=== PATIENT | male | born 1960 | race Caucasian/White ===

== ENCOUNTER → 2017-09-05 | Outpatient (CLI) | payer OTHER | END | disposition home or self-care (01) | LOC: KCIC 08:44 | DX: R91.8 Other nonspecific abnormal finding of lung field (principal) | CPT/HCPCS: 71046 ==

== ENCOUNTER → 2017-11-21 | Day surgery (SDC) | payer MEDICARE, OTHER ==
[~2017-11-21] MED LIST: IV RINGERS,LACTATED 1000ML 1,000 ML IV; LIDOCAINE 2% PF Vial for OR 5 ML VIAL.; PROPOFOL 20 ML IV
== END ==
LOC: SURG 07:41
DX: Z12.11 Encounter for screening for malignant neoplasm of colon (principal); K64.0 First degree hemorrhoids; K57.30 Diverticulosis of large intestine without perforation or abscess without bleeding; J45.909 Unspecified asthma, uncomplicated; E78.5 Hyperlipidemia, unspecified; E03.9 Hypothyroidism, unspecified; Z86.73 Personal history of transient ischemic attack (TIA), and cerebral infarction without residual deficits; Z82.49 Family history of ischemic heart disease and other diseases of the circulatory system; Z83.3 Family history of diabetes mellitus; Z79.899 Other long term (current) drug therapy
CPT/HCPCS: 45378; G0121; J2704

== ENCOUNTER 2019-05-03 15:55 | Emergency (ER) | payer MEDICARE, OTHER ==
[~2019-05-03] VITALS: Ht 182.9 cm; Wt 54.4 kg
[~2019-05-03 15:55] MED LIST changes: +ATOR20TA58 PO; +BENZ-8 PO; +BUPR150T8 PO; +CETI10TA16 PO; +FLUT1DIS3 IH; -IV RINGERS,LACTATED 1000ML 1,000 ML IV; +LEVO50TA5 PO; -LIDOCAINE 2% PF Vial for OR 5 ML VIAL.; -PROPOFOL 20 ML IV; +RANI150C PO; +RISP1TAB3 PO; +TRAZ-86 PO; +ZOLP10TA4 PO
[2019-05-03] MEDS ORDERED: LIDOCAINE 1% PF 2 ML VIAL. INJ ONE (16:15)
[2019-05-03] MEDS ORDERED: NEOMY/BACITR/POLYMYXIN OINT PACKET. TP ONE (16:15)
--- NOTE | 2019-05-03 16:48 | RAD ---
Exam: CT head and orbits INDICATION: Fall TECHNIQUE: Sequential axial images through the head and orbits were obtained without the administration of IV contrast. Comparisons: None FINDINGS: Head: No focal parenchymal lesion or hemorrhage is identified. There is no midline shift or sulcal effacement. No acute vascular territory infarction is identified. Mosher-white distinction is preserved. The ventricular system is within normal limits without compression hydrocephalus. The basal cisterns are well maintained. Orbits: Soft tissue extracranial contusion overlying the inferior orbital ridge on the right. Globes and intraorbital contents are normal. No acute fracture. Visualized portions of the paranasal sinuses are well-pneumatized. IMPRESSION: 1. Extracranial soft tissue contusion overlying the inferior orbital ridge on the right without underlying injury to the globe or intraorbital contents. 2. No acute intracranial abnormality. Exposure: One or more of the following in the visualized dose reduction techniques were utilized for this examination: 1. Automated exposure control 2. Adjustment of the MA and/or KV according to patient size Use of iterative of reconstructive technique Electronically signed by: Ashlee Og MD (05/03/2019 4:45 PM) [facility]
--- NOTE | 2019-05-03 17:01 | PHYS DOC ---
Past Medical History Past Medical History: Anxiety, Depression Past Surgical History: Other Additional Past Surgical Histo: HERINA Alcohol Use: None Drug Use: None Adult General Chief Complaint Chief Complaint: LACERATION/AVULSION [facility] HPI Patient is a 58 year old male who presents to the ER via EMS with complains of lacerations to his right eye after a witnessed fall outside the front of his home. Pt denies any LOC, nausea, vomiting, vision changes, head pain, neck pain, back pain, numbness or tingling. He states that he tripped over his own feet and that is the reason he fell. He also complains of abrasions to his right shoulder and bilateral palms. He states his last tetanus shot was less than 5 years ago. Pt denies any pain at this time. Review of Systems Review of Systems Constitutional: Denies fever or chills [] Eyes: Denies change in visual acuity, redness, or eye pain [] HENT: Denies nasal congestion or sore throat [] Respiratory: Denies cough or shortness of breath [] Cardiovascular: No additional information not addressed in HPI [] GI: Denies abdominal pain, nausea, or vomiting, Musculoskeletal: Denies back pain or joint pain [] Integument: Denies rash; see HPI Neurologic: Denies headache, focal weakness or sensory changes [] Complete systems were reviewed and found to be within normal limits, except as documented in this note. Current Medications Current Medications Current Medications Medications (Trade) Dose Ordered Sig/Jarrett Start Time Stop Time Status Last Admin Dose Admin Lidocaine HCl (Xylocaine-Mpf 1% 2ml Vial) 4 ml 1X ONCE 05/03/19 16:15 05/03/19 16:16 DC Neomycin/ Polymyxin/ Bacitracin (Triple Antibiotic Ointment) 1 pkt 1X ONCE 05/03/19 16:15 05/03/19 16:16 DC Allergies Allergies Allergies Coded Allergies Type Severity Reaction Last Updated Verified No Known Drug Allergies 11/21/17 No Physical Exam Physical Exam Constitutional: Well developed, well nourished, no acute distress, non-toxic appearance. [] HENT: Normocephalic, atraumatic, bilateral external ears normal, oropharynx moist, no oral exudates, nose normal. [] Eyes: PERRLA, EOMI, conjunctiva normal, no discharge. [] Neck: Normal range of motion, no tenderness, supple, no stridor. [] Cardiovascular:Heart rate regular rhythm Lungs & Thorax: Bilateral breath sounds clear to auscultation [] Skin: Warm, dry, no erythema, no rash; 3 superficial lacerations noted to left upper eye lid one just superior to the lateral eyebrow, one to the lateral upper eyelid and one just below the eyebrow, each measuring 1 cm or less with no active bleeding or visible FB; abrasions noted to palmar surface of proximal hand bilaterally without active bleeding; abrasion noted to lateral surface of right hand without active bleeding; and abrasion noted to the right shoulder without active bleeding. [] Back: No tenderness Extremities: No tenderness, no cyanosis, no clubbing, ROM intact, no edema. [] Neurologic: Alert and oriented X 3, no focal deficits noted. [] Psychologic: Affect normal, judgement normal, mood normal. [] Current Patient Data Vital Signs Vital Signs Date Time Temp Pulse Resp B/P (MAP) Pulse Ox O2 Delivery O2 Flow Rate FiO2 05/03/19 16:32 98.6 82 21 136/88 (104) 94 Room Air 98.6 EKG EKG [] Radiology/Procedures Radiology/Procedures PROCEDURE: CT HEAD WO CONTRAST Exam: CT head and orbits INDICATION: Fall TECHNIQUE: Sequential axial images through the head and orbits were obtained without the administration of IV contrast. Comparisons: None FINDINGS: Head: No focal parenchymal lesion or hemorrhage is identified. There is no midline shift or sulcal effacement. No acute vascular territory infarction is identified. Mosher-white distinction is preserved. The ventricular system is within normal limits without compression hydrocephalus. The basal cisterns are well maintained. Orbits: Soft tissue extracranial contusion overlying the inferior orbital ridge on the right. Globes and intraorbital contents are normal. No acute fracture. Visualized portions of the paranasal sinuses are well-pneumatized. IMPRESSION: 1. Extracranial soft tissue contusion overlying the inferior orbital ridge on the right without underlying injury to the globe or intraorbital contents. 2. No acute intracranial abnormality. Laceration #1 Repair by me: Anesthesia: 1% lidocaine locally Location: just superior right lateral eyebrow Tendon/Joint/Nerves: No injury Foreign body: None detected after copious irrigation and exploration Technique: dermabond skin tissue adhesive Complexity: No subcutaneous sutures/mucosal repair/edge excision Post Closure Length: 1 cm Laceration #2 Repair by me: Anesthesia: 1% lidocaine locally Location: just inferior to right lateral eyebrow Tendon/Joint/Nerves: No injury Foreign body: None detected after copious irrigation and exploration Technique: dermabond skin tissue adhesive Complexity: No subcutaneous sutures/mucosal repair/edge excision Post Closure Length: 1 cm Laceration #3 Repair by me: Anesthesia: 1% lidocaine locally Location: lateral right upper eyelid Tendon/Joint/Nerves: No injury Foreign body: None detected after copious irrigation and exploration Technique: dermabond skin tissue adhesive Complexity: No subcutaneous sutures/mucosal repair/edge excision Post Closure Length: 1 cm Patient's bleeding was easily controlled in the department and there is no indication of anemia. No evidence of compartment syndrome, neurologic injury, vascular injury, open joint, tendon laceration, or foreign body. Patient is appropriate for outpatient follow up. [] Course & Med Decision Making Course & Med Decision Making Pertinent Labs and Imaging studies reviewed. (See chart for details) [] Dragon Disclaimer Dragon Disclaimer This electronic medical record was generated, in whole or in part, using a voice recognition dictation system. Departure Departure Impression: Primary Impression: Superficial laceration of face Additional Impressions: Multiple abrasions Fall from standing Disposition: 01 HOME, SELF-CARE Condition: STABLE Referrals: NO PCP (PCP) Patient Instructions: Abrasion, [id number], Tissue Adhesive Wound Care, [id number] Additional Instructions: Keep the laceration sites clean and dry, the skin glue will come of on it's own. Keep your abrasions clean and apply antibiotic ointment to the abrasion sites and a clean bandage twice daily until healed. Tylenol or ibuprofen as needed for pain. Your CT scan was normal, there were no broken bones around your eye. You may apply an ice pack to swollen areas for 10-15 minutes every hour while awake tonight and tomorrow and then as needed. Return to the ER for any further problems. Problem Qualifiers Additional Impressions: Fall from standing Encounter type: initial encounter Qualified Codes: W19.XXXA - Unspecified fall, initial encounter MERISSA JOHNSON CIRCULATION ASSISTANT May 03, 2019 17:01
[2019-05-03 18:00] VITALS: BP 139/79
== END 2019-05-03 18:12 | disposition home or self-care (01) ==
LOC: ER 15:55
DX: S01.111A Laceration without foreign body of right eyelid and periocular area, initial encounter (principal); S40.211A Abrasion of right shoulder, initial encounter; S60.512A Abrasion of left hand, initial encounter; S60.511A Abrasion of right hand, initial encounter; R51 Headache; W01.0XXA Fall on same level from slipping, tripping and stumbling without subsequent striking against object, initial encounter; Y93.89 Activity, other specified; Y92.89 Other specified places as the place of occurrence of the external cause; Y99.8 Other external cause status
CPT/HCPCS: 12013; 70450; 70480; 99284-25